=== PATIENT | male | born 1960 | race Caucasian/White ===

== ENCOUNTER 2017-06-09 14:42 | Inpatient (IN) | payer MEDICARE, MEDICAID ==
[~2017-06-09] VITALS: Ht 180.3 cm; Wt 94.4 kg
[~2017-06-09 14:42] MED LIST: ATOR40TA28 PO; CLON.5 PO; EZET10 PO; GABA-533 PO; HYDR1LIQ5 PO; LOSA50TA37 PO; LUBI24CA2 PO; MELO-107 PO; MIRT30 PO; NALO25TA PO; OMEG10005 PO; OXYC-522 PO; PREG75 PO; TIZA4TAB4 PO; TRAM50TA4 PO; VITAD1000 PO
[2017-06-09] MEDS ORDERED: HALOPERIDOL 5 MG TABLET PO PRN (16:00)
[2017-06-09] MEDS ORDERED: LORazepam 2 MG TABLET PO PRN (16:00)
[2017-06-09] MEDS ORDERED: ZOLPIDEM TARTRATE 10 MG TABLET PO PRN (16:00)
[2017-06-09] MEDS ORDERED: MAG HYDROX/AL HYDROX/SIMETH ES 30 ML SUSPENSION UDCUP PO PRN (17:45)
[2017-06-09] MEDS ORDERED: IBUPROFEN 600 MG TABLET PO PRN (17:45)
[2017-06-09] MEDS ORDERED: HydrOXYzine PAMOATE 50 MG CAPSULE PO PRN (17:45)
[2017-06-09] MEDS ORDERED: CloNIDine HCL 0.1 MG TABLET PO PRN (17:45)
[2017-06-09] MEDS ORDERED: PROMETHAZINE HCL 25 MG/ML VIAL IM PRN (17:45)
[2017-06-09 18:00] VITALS: BP 132/85
[2017-06-09 19:00] VITALS: BP 126/78
[2017-06-09 20:00] VITALS: BP 124/74
[2017-06-09] MEDS ORDERED: ACETAMINOPHEN 325 MG TABLET PO PRN (20:00)
[2017-06-09] MEDS: TraZODone HCL 100 MG TABLET PO SCH (20:05)
[2017-06-09 20:49] VITALS: BP 117/76
[2017-06-09 21:00] VITALS: BP 117/76
[2017-06-09] MEDS ORDERED: TraZODone HCL 100 MG TABLET PO SCH (21:00)
[2017-06-09] MEDS ORDERED: MIRTAZAPINE 15 MG TABLET PO SCH (21:00)
[2017-06-09] MEDS ORDERED: ATORVASTATIN CALCIUM 40 MG TABLET PO SCH (21:00)
[2017-06-09 21:37] LABS: APPEARANCE,URINE CLEAR (CLEAR); GLUCOSE, URINE (UA) NEGATIVE (NEGATIVE); KETONES,URINE NEGATIVE (NEGATIVE); LEUKOCYTE ESTERASE ,URINE NEGATIVE (NEGATIVE); OCCULT BLOOD,URINE NEGATIVE (NEGATIVE); PH,URINE 5.5 (5.0-8.0); PROTEIN,URINE NEGATIVE (NEGATIVE)
[2017-06-09 21:46] LABS: ADD UA MICROSCOPIC NO
[2017-06-09 22:01] VITALS: BP 114/72
[2017-06-09] MEDS: CloNIDine HCL 0.1 MG TABLET PO SCH (22:02)
[2017-06-10 01:00] VITALS: BP 125/77
[2017-06-10 04:41] VITALS: BP 120/73
[2017-06-10] MEDS: CloNIDine HCL 0.1 MG TABLET PO SCH ×2 (06:00→12:00)
[2017-06-10 06:24] LABS: BASOPHILS % (AUTO) 0.9 % (0.0-2.0); EOSINOPHILS % (AUTO) 4.8 % (1.0-6.0); HEMATOCRIT 39.7 % (41-53); HEMOGLOBIN 13.6 g/dL (13.5-17.5); LYMPHOCYTES # (AUTO) 1.8 K/uL (1.0-4.8); LYMPHOCYTES % (AUTO) 40.8 % (22.0-44.0); MEAN CORPUSCULAR HEMOGLOBIN 29.3 pg (26.0-34.0); MEAN CORPUSCULAR HGB CONC 34.2 G/dL (31.0-37.0); MEAN CORPUSCULAR VOLUME 86 fL (80-100); MONOCYTES # (AUTO) 0.4 K/uL (0.1-1.0); MONOCYTES % (AUTO) 10.2 % (2.0-9.0); NEUTROPHILS # (AUTO) 1.9 K/uL (1.8-7.7); NEUTROPHILS % (AUTO) 43.3 % (40.0-70.0); PLATELET COUNT (AUTO) 201 K/uL (150-450); RED BLOOD CELL COUNT(AUTO) 4.64 MIL/uL (4.50-5.90); RED CELL DISTRIBUTION WIDTH 14.9 % (11.5-14.5); WHITE BLOOD COUNT (AUTO) 4.3 K/uL (4.5-11.0)
[2017-06-10 07:03] LABS: ALANINE AMINOTRANSFERASE 77 U/L (12-78); ALBUMIN 3.3 g/dL (3.4-5.0); ANION GAP 6 mmol/L (8-16); ASPARTATE AMINOTRANSFERASE 42 U/L (15-37); BILIRUBIN,TOTAL 0.3 mg/dL (0.1-1.0); CALCIUM, TOTAL 8.6 mg/dL (8.8-10.5); CARBON DIOXIDE 30 mmol/L (22-29); CHLORIDE 106 mmol/L (98-107); CHOL/HDL RATIO 2.6 (4.2-7.3); CREATININE 1.17 mg/dL (0.60-1.30); GLOMERULAR FILTR. RATE CALC > 60 mL/min (>60); POTASSIUM 4.5 mmol/L (3.5-5.1); SODIUM SERUM 142 mmol/L (136-145); THYROID STIMULATING HORMONE 2.09 uIU/mL (0.36-3.74); UREA NITROGEN, BLOOD 11 mg/dL (7-18)
[2017-06-10 08:00] VITALS: BP 116/83
[2017-06-10] MEDS: TraZODone HCL 100 MG TABLET PO SCH (08:19)
[2017-06-10] MEDS ORDERED: GABAPENTIN 400 MG CAPSULE PO SCH (09:00)
[2017-06-10] MEDS ORDERED: OMEGA-3/DHA/EPA/FISH OIL 500 MG CAPSULE PO SCH (09:00)
[2017-06-10] MEDS ORDERED: CHOLECALCIFEROL (VIT D3) 1,000 UNITS TABLET PO SCH (09:00)
[2017-06-10] MEDS ORDERED: CITALOPRAM HYDROBROMIDE 20 MG TABLET PO SCH (09:00)
[2017-06-10 09:02] VITALS: BP 116/83
[2017-06-10] MEDS ORDERED: GABA-533 PO (11:20)
[2017-06-10] MEDS ORDERED: CITA20TA9 PO (11:20)
[2017-06-10] MEDS ORDERED: TRAZ-147 PO (11:21)
== END 2017-06-10 12:00 | disposition home or self-care (01) | DRG 885 ==
LOC: 3EX 15:48
PROVIDERS: ADMIT Psychiatry & Neurology Psychiatry; ATTEND Psychiatry & Neurology Psychiatry
DX: F33.2 Major depressive disorder, recurrent severe without psychotic features (principal); E55.9 Vitamin D deficiency, unspecified; E78.5 Hyperlipidemia, unspecified; F41.9 Anxiety disorder, unspecified; M19.90 Unspecified osteoarthritis, unspecified site; M54.9 Dorsalgia, unspecified
CPT/HCPCS: 80307; 83036; 84439; 84443; J2550